=== PATIENT | female | born 1935 | race Caucasian/White ===

== ENCOUNTER 2018-05-20 17:57 | Inpatient (IN) | payer OTHER ==
[2018-05-20 19:28] LABS: ADD MAN DIFF? NO
[2018-05-20] MEDS ORDERED: NACL 0.9% 3 ML SYG IV (19:30)
[2018-05-20] MEDS ORDERED: ACETAMINOPHEN 325 MG TAB PO (19:30)
[2018-05-20 19:31] LABS: WHITE BLOOD COUNT 4.4 10^3/ul (4.8-10.8)
[2018-05-20 19:31] LABS: BASOPHILS % 0.9 % (0.0-2.0); EOSINOPHILS # 0.1 10^3/ul (0.0-0.5); EOSINOPHILS % 2.1 % (0.0-7.0); HEMATOCRIT 21.7 % (37.0-47.0); HEMOGLOBIN 7.2 g/dl (12.0-16.0); LYMPHOCYTES # 1.1 10^3/ul (0.8-2.9); LYMPHOCYTES % 26.1 % (15.0-51.0); MEAN CORPUSCULAR HEMOGLOBIN 31.7 pg (29.0-33.0); MEAN CORPUSCULAR HGB CONC 33.2 g/dl (32.0-37.0); MEAN CORPUSCULAR VOLUME 95.6 fl (82.0-101.0); MEAN PLATELET VOLUME 9.1 fl (7.4-10.4); MONOCYTE # 0.4 10^3/ul (0.3-0.9); MONOCYTES % 10.1 % (0.0-11.0); NEUTROPHIL # 2.6 10^3/ul (1.6-7.5); NEUTROPHILS % 60.3 % (39.0-77.0); PLATELET COUNT 426 10^3/UL (140-415); RED BLOOD COUNT 2.27 10^6/ul (4.20-5.40); RED CELL DISTRIBUTION WIDTH 15.4 % (11.5-14.5)
[2018-05-20 19:51] LABS: IRON 27 ug/dl (35-150)
[2018-05-20 19:53] LABS: MAGNESIUM 2.1 mg/dl (1.7-2.5)
[2018-05-20 19:54] LABS: ALBUMIN 3.4 g/dl (3.3-4.9); ANION GAP 15 (8-16); BLOOD UREA NITROGEN 22 mg/dl (7-20); CALCIUM 8.8 mg/dl (8.4-10.2); CARBON DIOXIDE 23 mmol/L (21-31); CHLORIDE 102 mmol/L (97-110); CREATININE 1.14 mg/dl (0.44-1.00); GLUCOSE 101 mg/dl (70-220); POTASSIUM 4.8 mmol/L (3.5-5.1); SODIUM 135 mmol/L (135-144)
[2018-05-20 20:00] LABS: % IRON SATURATION 8 % SAT (22-52); TOTAL IRON BINDING CAPACITY 326 ug/dl (241-421)
[2018-05-20] MEDS: SOD CHLORIDE 0.9% 1,000 ML IV (20:45)
[2018-05-20] MEDS: PANTOPRAZOLE 40 MG INJ IV (22:51)
[2018-05-21] MEDS: PANTOPRAZOLE 40 MG INJ IV ×2 (05:47→21:27)
[2018-05-21 05:51] LABS: ADD MAN DIFF? NO
[2018-05-21] MEDS: HYDROCODONE/APAP (5/325) TAB PO ×2 (05:54→17:40)
[2018-05-21 06:41] LABS: ANION GAP 14 (8-16); BLOOD UREA NITROGEN 21 mg/dl (7-20); CALCIUM 8.4 mg/dl (8.4-10.2); CARBON DIOXIDE 26 mmol/L (21-31); CHLORIDE 103 mmol/L (97-110); CREATININE 1.05 mg/dl (0.44-1.00); GLUCOSE 94 mg/dl (70-220); PHOSPHORUS 3.9 mg/dl (2.5-4.9); POTASSIUM 4.7 mmol/L (3.5-5.1); SODIUM 138 mmol/L (135-144)
[2018-05-21 07:03] LABS: ABNORMAL IP MESSAGE 1; BASOPHILS % 0.9 % (0.0-2.0); EOSINOPHILS # 0.1 10^3/ul (0.0-0.5); EOSINOPHILS % 3.1 % (0.0-7.0); HEMATOCRIT 18.5 % (37.0-47.0); LYMPHOCYTES # 1.1 10^3/ul (0.8-2.9); LYMPHOCYTES % 23.7 % (15.0-51.0); MEAN CORPUSCULAR HEMOGLOBIN 31.6 pg (29.0-33.0); MEAN CORPUSCULAR VOLUME 95.9 fl (82.0-101.0); MEAN PLATELET VOLUME 9.2 fl (7.4-10.4); MONOCYTE # 0.5 10^3/ul (0.3-0.9); MONOCYTES % 10.6 % (0.0-11.0); NEUTROPHIL # 2.7 10^3/ul (1.6-7.5); NEUTROPHILS % 60.8 % (39.0-77.0); PLATELET COUNT 353 10^3/UL (140-415); RED BLOOD COUNT 1.93 10^6/ul (4.20-5.40); RED CELL DISTRIBUTION WIDTH 15.5 % (11.5-14.5)
[2018-05-21 07:03] LABS: WHITE BLOOD COUNT 4.5 10^3/ul (4.8-10.8)
[2018-05-21 07:18] LABS: POSITIVE DIFF @See below
[2018-05-21 07:20] LABS: HEMOGLOBIN 6.1 g/dl (12.0-16.0); PATH REVIEW? YES
[2018-05-21] MEDS: FERROUS SULFATE (EC) 325 MG TAB PO (08:41)
[2018-05-21] MEDS: AMLODIPINE 5 MG TAB PO (08:42)
[2018-05-21] MEDS: SOD CHLORIDE 0.9% 1,000 ML IV ×2 (09:19→22:20)
[2018-05-21 10:07] LABS: HEMATOCRIT 19.9 % (37.0-47.0)
[2018-05-21 10:11] LABS: HEMOGLOBIN 6.4 g/dl (12.0-16.0)
[2018-05-21 11:35] LABS: IMMEDIATE SPIN CROSSMATCH 1 2
[2018-05-21 19:30] LABS: FOLATE 17.7 ng/ml (2.8-20.0)
[2018-05-22 04:56] LABS: ADD MAN DIFF? NO
[2018-05-22 05:03] LABS: WHITE BLOOD COUNT 3.3 10^3/ul (4.8-10.8)
[2018-05-22 05:03] LABS: BASOPHIL # 0.1 10^3/ul (0.0-0.1); BASOPHILS % 1.8 % (0.0-2.0); EOSINOPHILS # 0.2 10^3/ul (0.0-0.5); EOSINOPHILS % 5.5 % (0.0-7.0); HEMATOCRIT 25.5 % (37.0-47.0); HEMOGLOBIN 8.4 g/dl (12.0-16.0); LYMPHOCYTES # 1.2 10^3/ul (0.8-2.9); LYMPHOCYTES % 37.1 % (15.0-51.0); MEAN CORPUSCULAR HEMOGLOBIN 30.8 pg (29.0-33.0); MEAN CORPUSCULAR HGB CONC 32.9 g/dl (32.0-37.0); MEAN CORPUSCULAR VOLUME 93.4 fl (82.0-101.0); MEAN PLATELET VOLUME 9.2 fl (7.4-10.4); MONOCYTE # 0.5 10^3/ul (0.3-0.9); MONOCYTES % 13.8 % (0.0-11.0); NEUTROPHIL # 1.3 10^3/ul (1.6-7.5); NEUTROPHILS % 40.6 % (39.0-77.0); PLATELET COUNT 312 10^3/UL (140-415); RED BLOOD COUNT 2.73 10^6/ul (4.20-5.40); RED CELL DISTRIBUTION WIDTH 15.2 % (11.5-14.5)
[2018-05-22 05:13] LABS: ANION GAP 15 (8-16); BLOOD UREA NITROGEN 15 mg/dl (7-20); CALCIUM 8.5 mg/dl (8.4-10.2); CARBON DIOXIDE 24 mmol/L (21-31); CHLORIDE 104 mmol/L (97-110); CREATININE 1.07 mg/dl (0.44-1.00); GLUCOSE 93 mg/dl (70-220); POTASSIUM 4.5 mmol/L (3.5-5.1); SODIUM 138 mmol/L (135-144)
[2018-05-22] MEDS: SOD CHLORIDE 0.9% 1,000 ML IV (06:32)
[2018-05-22] MEDS: PANTOPRAZOLE 40 MG INJ IV ×2 (09:01→21:30)
[2018-05-22] MEDS: FERROUS SULFATE (EC) 325 MG TAB PO (09:01)
[2018-05-22] MEDS: AMLODIPINE 5 MG TAB PO (09:01)
[2018-05-22] MEDS: SOD FERRIC GLUC COMPLX 125 MG in SOD CHLORIDE 0.9% 100 ML IVPB ×2 (12:20→16:43)
[2018-05-22] MEDS: HYDROCODONE/APAP (5/325) TAB PO (12:21)
[2018-05-23] MEDS: HYDROCODONE/APAP (5/325) TAB PO ×3 (01:02→21:35)
[2018-05-23] MEDS: SOD CHLORIDE 0.9% 1,000 ML IV ×3 (01:03→23:51)
[2018-05-23 04:59] LABS: ADD MAN DIFF? NO
[2018-05-23 05:06] LABS: BASOPHIL # 0.1 10^3/ul (0.0-0.1); BASOPHILS % 1.4 % (0.0-2.0); EOSINOPHILS # 0.2 10^3/ul (0.0-0.5); EOSINOPHILS % 4.3 % (0.0-7.0); HEMATOCRIT 24.9 % (37.0-47.0); HEMOGLOBIN 8.4 g/dl (12.0-16.0); LYMPHOCYTES # 1.4 10^3/ul (0.8-2.9); LYMPHOCYTES % 32.8 % (15.0-51.0); MEAN CORPUSCULAR HEMOGLOBIN 31.3 pg (29.0-33.0); MEAN CORPUSCULAR HGB CONC 33.7 g/dl (32.0-37.0); MEAN CORPUSCULAR VOLUME 92.9 fl (82.0-101.0); MEAN PLATELET VOLUME 9.2 fl (7.4-10.4); MONOCYTE # 0.5 10^3/ul (0.3-0.9); MONOCYTES % 12.6 % (0.0-11.0); NEUTROPHILS % 47.9 % (39.0-77.0); PLATELET COUNT 309 10^3/UL (140-415); RED BLOOD COUNT 2.68 10^6/ul (4.20-5.40); RED CELL DISTRIBUTION WIDTH 15.2 % (11.5-14.5)
[2018-05-23 05:06] LABS: WHITE BLOOD COUNT 4.2 10^3/ul (4.8-10.8)
[2018-05-23 05:16] LABS: INR 1.19; PROTIME 15.3 Sec (11.9-14.9); PT RATIO 1.2
[2018-05-23 05:31] LABS: ALANINE AMINOTRANSFERASE 25 IU/L (13-69); ALBUMIN 2.7 g/dl (3.3-4.9); ALKALINE PHOSPHATASE 66 IU/L (42-121); ANION GAP 13 (8-16); ASPARTATE AMINO TRANSFERASE 15 IU/L (15-46); BILIRUBIN,INDIRECT 0.3 mg/dl (0-1.1); BILIRUBIN,TOTAL 0.3 mg/dl (0.2-1.3); BLOOD UREA NITROGEN 13 mg/dl (7-20); CALCIUM 8.2 mg/dl (8.4-10.2); CARBON DIOXIDE 22 mmol/L (21-31); CHLORIDE 109 mmol/L (97-110); CREATININE 0.97 mg/dl (0.44-1.00); GLUCOSE 83 mg/dl (70-220); POTASSIUM 4.2 mmol/L (3.5-5.1); SODIUM 140 mmol/L (135-144); TOTAL PROTEIN 5.7 g/dl (6.1-8.1)
[2018-05-23] MEDS: PANTOPRAZOLE 40 MG INJ IV ×2 (08:10→21:35)
[2018-05-23] MEDS: AMLODIPINE 5 MG TAB PO (08:10)
[2018-05-23] MEDS: FERROUS SULFATE (EC) 325 MG TAB PO (08:10)
[2018-05-23] MEDS ORDERED: VITAMIN A & D 5 GM OINT PACKET TOP (10:43)
[2018-05-23] MEDS: BISACODYL (EC) 5 MG TAB PO ×2 (15:05→21:35)
[2018-05-23] MEDS: SOD FERRIC GLUC COMPLX 125 MG in SOD CHLORIDE 0.9% 100 ML IVPB (16:18)
[2018-05-23] MEDS: POLYETHYLENE GLYCOL 3350 119 GM POWDER PO ×2 (16:18→21:35)
[2018-05-23] MEDS: ONDANSETRON 4 MG INJ IV (18:36)
[2018-05-23] MEDS: MAGNESIUM CITRATE 300 ML BTL PO (21:35)
[2018-05-24 05:37] LABS: ADD MAN DIFF? NO
[2018-05-24 05:43] LABS: BASOPHIL # 0.1 10^3/ul (0.0-0.1); EOSINOPHILS # 0.1 10^3/ul (0.0-0.5); EOSINOPHILS % 1.7 % (0.0-7.0); HEMATOCRIT 30.8 % (37.0-47.0); HEMOGLOBIN 10.2 g/dl (12.0-16.0); LYMPHOCYTES # 1.3 10^3/ul (0.8-2.9); LYMPHOCYTES % 23.1 % (15.0-51.0); MEAN CORPUSCULAR HEMOGLOBIN 31.4 pg (29.0-33.0); MEAN CORPUSCULAR HGB CONC 33.1 g/dl (32.0-37.0); MEAN CORPUSCULAR VOLUME 94.8 fl (82.0-101.0); MEAN PLATELET VOLUME 9.2 fl (7.4-10.4); MONOCYTE # 0.7 10^3/ul (0.3-0.9); MONOCYTES % 11.5 % (0.0-11.0); NEUTROPHIL # 3.5 10^3/ul (1.6-7.5); NEUTROPHILS % 61.7 % (39.0-77.0); PLATELET COUNT 347 10^3/UL (140-415); RED BLOOD COUNT 3.25 10^6/ul (4.20-5.40); RED CELL DISTRIBUTION WIDTH 15.3 % (11.5-14.5)
[2018-05-24 05:43] LABS: WHITE BLOOD COUNT 5.8 10^3/ul (4.8-10.8)
[2018-05-24] MEDS: FERROUS SULFATE (EC) 325 MG TAB PO (09:45)
[2018-05-24] MEDS: AMLODIPINE 5 MG TAB PO (09:46)
[2018-05-24] MEDS: PANTOPRAZOLE 40 MG INJ IV ×2 (09:46→20:58)
[2018-05-24] MEDS: HYDROCODONE/APAP (5/325) TAB PO ×2 (12:24→20:58)
[2018-05-24] MEDS ORDERED: FENTAnyl 50 MCG/ML VIAL (15:27)
[2018-05-24] MEDS ORDERED: PROPOFOL 20 ML (15:27)
[2018-05-24] MEDS: SOD FERRIC GLUC COMPLX 125 MG in SOD CHLORIDE 0.9% 100 ML IVPB (17:49)
[2018-05-25 05:38] LABS: ADD MAN DIFF? NO
[2018-05-25 05:44] LABS: WHITE BLOOD COUNT 4.4 10^3/ul (4.8-10.8)
[2018-05-25 05:44] LABS: BASOPHIL # 0.1 10^3/ul (0.0-0.1); BASOPHILS % 1.1 % (0.0-2.0); EOSINOPHILS # 0.2 10^3/ul (0.0-0.5); EOSINOPHILS % 3.6 % (0.0-7.0); HEMATOCRIT 25.3 % (37.0-47.0); HEMOGLOBIN 8.3 g/dl (12.0-16.0); LYMPHOCYTES # 1.2 10^3/ul (0.8-2.9); LYMPHOCYTES % 27.4 % (15.0-51.0); MEAN CORPUSCULAR HEMOGLOBIN 31.3 pg (29.0-33.0); MEAN CORPUSCULAR HGB CONC 32.8 g/dl (32.0-37.0); MEAN CORPUSCULAR VOLUME 95.5 fl (82.0-101.0); MEAN PLATELET VOLUME 9.3 fl (7.4-10.4); MONOCYTE # 0.7 10^3/ul (0.3-0.9); MONOCYTES % 14.7 % (0.0-11.0); NEUTROPHIL # 2.3 10^3/ul (1.6-7.5); NEUTROPHILS % 52.1 % (39.0-77.0); PLATELET COUNT 280 10^3/UL (140-415); RED BLOOD COUNT 2.65 10^6/ul (4.20-5.40); RED CELL DISTRIBUTION WIDTH 15.4 % (11.5-14.5)
[2018-05-25 05:59] LABS: HEMOGLOBIN A1C 5.6 % (0-5.9)
[2018-05-25 06:03] LABS: ALANINE AMINOTRANSFERASE 24 IU/L (13-69); ALBUMIN 2.6 g/dl (3.3-4.9); ALBUMIN/GLOBULIN RATIO 0.96; ALKALINE PHOSPHATASE 59 IU/L (42-121); ANION GAP 12 (8-16); ASPARTATE AMINO TRANSFERASE 15 IU/L (15-46); BILIRUBIN,INDIRECT 0.3 mg/dl (0-1.1); BILIRUBIN,TOTAL 0.3 mg/dl (0.2-1.3); BLOOD UREA NITROGEN 9 mg/dl (7-20); CALCIUM 8.3 mg/dl (8.4-10.2); CARBON DIOXIDE 26 mmol/L (21-31); CHLORIDE 104 mmol/L (97-110); GLUCOSE 85 mg/dl (70-220); MAGNESIUM 2.3 mg/dl (1.7-2.5); PHOSPHORUS 3.3 mg/dl (2.5-4.9); POTASSIUM 3.9 mmol/L (3.5-5.1); SODIUM 138 mmol/L (135-144); TOTAL PROTEIN 5.3 g/dl (6.1-8.1)
[2018-05-25] MEDS: AMLODIPINE 5 MG TAB PO (09:22)
[2018-05-25] MEDS: PANTOPRAZOLE 40 MG INJ IV (09:22)
[2018-05-25] MEDS: HYDROCODONE/APAP (5/325) TAB PO (09:22)
[2018-05-25] MEDS: FERROUS SULFATE (EC) 325 MG TAB PO (09:22)
== END 2018-05-25 19:07 | disposition home or self-care (01) | DRG 812 ==
LOC: PP2 17:57
PROC: 30233N1 Transfusion of Nonautologous Red Blood Cells into Peripheral Vein, Percutaneous Approach (ICD-10-PCS; principal; 2018-05-24 13:30)
PROC: 0DBF8ZX Excision of Right Large Intestine, Via Natural or Artificial Opening Endoscopic, Diagnostic (ICD-10-PCS; 2018-05-24 13:30)
PROC: 0DB98ZX Excision of Duodenum, Via Natural or Artificial Opening Endoscopic, Diagnostic (ICD-10-PCS; 2018-05-24 13:30)
PROC: 0DB78ZX Excision of Stomach, Pylorus, Via Natural or Artificial Opening Endoscopic, Diagnostic (ICD-10-PCS; 2018-05-24 13:30)
DX: D50.0 Iron deficiency anemia secondary to blood loss (chronic) (principal); K63.3 Ulcer of intestine; K52.1 Toxic gastroenteritis and colitis; I12.9 Hypertensive chronic kidney disease with stage 1 through stage 4 chronic kidney disease, or unspecified chronic kidney disease; N18.2 Chronic kidney disease, stage 2 (mild); G89.4 Chronic pain syndrome; M19.91 Primary osteoarthritis, unspecified site; K63.89 Other specified diseases of intestine; K29.50 Unspecified chronic gastritis without bleeding; T50.905A Adverse effect of unspecified drugs, medicaments and biological substances, initial encounter; Z87.11 Personal history of peptic ulcer disease
CPT/HCPCS: 36430; 80048; 80053; 80069; 82607; 82746; 83036; 83540; 83735; 84100; 84443; 85014; 85018; 85025; 85610; 85730; 86850; 86900; 86901; 86920; 88305; 88312

== ENCOUNTER 2018-06-24 14:33 | Inpatient (IN) | payer OTHER ==
[2018-06-24] MEDS: DOCUSATE SODIUM 100 MG CAP PO
[2018-06-24] MEDS: TRIAMCINOLONE ACET 0.1% 15 GM OINT TOP
[2018-06-24 16:45] LABS: ADD MAN DIFF? NO
[2018-06-24] MEDS: SOD CHLORIDE 0.9% 500 ML IV (16:45)
[2018-06-24 16:54] LABS: WHITE BLOOD COUNT 8.9 10^3/ul (4.8-10.8)
[2018-06-24 16:54] LABS: BASOPHIL # 0.1 10^3/ul (0.0-0.1); BASOPHILS % 0.6 % (0.0-2.0); EOSINOPHILS # 0.1 10^3/ul (0.0-0.5); EOSINOPHILS % 1.5 % (0.0-7.0); HEMATOCRIT 23.3 % (37.0-47.0); HEMOGLOBIN 7.6 g/dl (12.0-16.0); LYMPHOCYTES # 1.3 10^3/ul (0.8-2.9); LYMPHOCYTES % 14.5 % (15.0-51.0); MEAN CORPUSCULAR HEMOGLOBIN 31.1 pg (29.0-33.0); MEAN CORPUSCULAR HGB CONC 32.6 g/dl (32.0-37.0); MEAN CORPUSCULAR VOLUME 95.5 fl (82.0-101.0); MEAN PLATELET VOLUME 9.2 fl (7.4-10.4); MONOCYTE # 0.7 10^3/ul (0.3-0.9); MONOCYTES % 7.5 % (0.0-11.0); NEUTROPHIL # 6.6 10^3/ul (1.6-7.5); NEUTROPHILS % 74.4 % (39.0-77.0); PLATELET COUNT 276 10^3/UL (140-415); RED BLOOD COUNT 2.44 10^6/ul (4.20-5.40); RED CELL DISTRIBUTION WIDTH 16.5 % (11.5-14.5)
[2018-06-24 17:12] LABS: INR 0.98; PROTIME 13.1 Sec (11.9-14.9)
[2018-06-24 17:13] LABS: PARTIAL THROMBOPLASTIN TIME 30.6 Sec (25.0-35.0)
[2018-06-24 17:14] LABS: ALANINE AMINOTRANSFERASE 13 IU/L (13-69); ALBUMIN 3.4 g/dl (3.3-4.9); ALKALINE PHOSPHATASE 81 IU/L (42-121); ANION GAP 12 (8-16); ASPARTATE AMINO TRANSFERASE 16 IU/L (15-46); BILIRUBIN,INDIRECT 0.1 mg/dl (0-1.1); BILIRUBIN,TOTAL 0.1 mg/dl (0.2-1.3); BLOOD UREA NITROGEN 27 mg/dl (7-20); CALCIUM 8.8 mg/dl (8.4-10.2); CARBON DIOXIDE 25 mmol/L (21-31); CHLORIDE 98 mmol/L (97-110); GLUCOSE 106 mg/dl (70-220); LIPASE 35 U/L (23-300); POTASSIUM 4.8 mmol/L (3.5-5.1); SODIUM 130 mmol/L (135-144); TOTAL PROTEIN 6.8 g/dl (6.1-8.1)
[2018-06-24 17:26] LABS: TROPONIN-I < 0.010 ng/ml (0.000-0.120)
[2018-06-24 18:06] LABS: IMMEDIATE SPIN CROSSMATCH 1 1
[2018-06-24] MEDS ORDERED: LORAZEPAM 2 MG INJ IV (19:00)
[2018-06-24] MEDS ORDERED: NITROGLYCERIN (SL) 0.4 MG TAB SL (19:00)
[2018-06-24] MEDS ORDERED: DOCUSATE SODIUM 100 MG CAP PO (19:00)
[2018-06-24] MEDS ORDERED: ACETAMINOPHEN 325 MG TAB PO (19:00)
[2018-06-24] MEDS ORDERED: ALBUTEROL/IPRATROPIUM (NEB) 3 ML AMP HHN (19:00)
[2018-06-24] MEDS ORDERED: NA PHOSPHATE/BIPHOS 133 ML ENEMA PR (19:00)
[2018-06-24] MEDS ORDERED: NACL 0.9% 3 ML SYG IV (19:00)
[2018-06-24] MEDS ORDERED: ONDANSETRON 4 MG INJ IV (19:00)
[2018-06-24] MEDS ORDERED: MAGNESIUM HYDROXIDE 30ML CUP PO (19:00)
[2018-06-24] MEDS ORDERED: morphine 2 MG INJ IV (19:00)
[2018-06-24] MEDS ORDERED: hydrALAzine 20 MG INJ IV (19:00)
[2018-06-24 20:21] LABS: FREE T4 (FREE THYROXINE) 1.33 ng/dl (0.85-1.93)
[2018-06-24] MEDS: SOD CHLORIDE 0.45% 1,000 ML IV (21:30)
[2018-06-24 22:53] LABS: INR 1.01; PROTIME 13.4 Sec (11.9-14.9)
[2018-06-24 22:54] LABS: PARTIAL THROMBOPLASTIN TIME 31.5 Sec (25.0-35.0)
[2018-06-25] MEDS: PANTOPRAZOLE 40 MG INJ IV (05:24)
[2018-06-25] MEDS: HYDROCODONE/APAP (5/325) TAB PO (05:38)
[2018-06-25 07:34] LABS: ADD MAN DIFF? NO
[2018-06-25 07:42] LABS: BASOPHIL # 0.1 10^3/ul (0.0-0.1); BASOPHILS % 0.9 % (0.0-2.0); EOSINOPHILS # 0.2 10^3/ul (0.0-0.5); EOSINOPHILS % 3.4 % (0.0-7.0); HEMATOCRIT 24.8 % (37.0-47.0); HEMOGLOBIN 8.2 g/dl (12.0-16.0); LYMPHOCYTES # 1.1 10^3/ul (0.8-2.9); MEAN CORPUSCULAR HEMOGLOBIN 30.7 pg (29.0-33.0); MEAN CORPUSCULAR HGB CONC 33.1 g/dl (32.0-37.0); MEAN CORPUSCULAR VOLUME 92.9 fl (82.0-101.0); MONOCYTE # 0.6 10^3/ul (0.3-0.9); MONOCYTES % 9.9 % (0.0-11.0); NEUTROPHIL # 3.9 10^3/ul (1.6-7.5); NEUTROPHILS % 66.6 % (39.0-77.0); PLATELET COUNT 265 10^3/UL (140-415); RED BLOOD COUNT 2.67 10^6/ul (4.20-5.40); RED CELL DISTRIBUTION WIDTH 16.5 % (11.5-14.5)
[2018-06-25 07:42] LABS: WHITE BLOOD COUNT 5.8 10^3/ul (4.8-10.8)
[2018-06-25 07:49] LABS: HEMOGLOBIN A1C 5.8 % (0-5.9)
[2018-06-25] MEDS: SOD CHLORIDE 0.45% 1,000 ML IV (07:51)
[2018-06-25 08:06] LABS: CHOLESTEROL 121 mg/dl (100-200)
[2018-06-25 08:06] LABS: CHOL/HDL RATIO 3.3 RATIO; HDL CHOLESTEROL 36 mg/dl (33-92); LDL CHOLESTEROL,CALCULATED 68 mg/dl; TRIGLYCERIDES 87 mg/dl (0-149)
[2018-06-25 08:07] LABS: ANION GAP 9 (8-16); BLOOD UREA NITROGEN 20 mg/dl (7-20); CALCIUM 8.6 mg/dl (8.4-10.2); CARBON DIOXIDE 25 mmol/L (21-31); CHLORIDE 106 mmol/L (97-110); CREATININE 0.87 mg/dl (0.44-1.00); GLUCOSE 89 mg/dl (70-220); MAGNESIUM 1.9 mg/dl (1.7-2.5); PHOSPHORUS 3.8 mg/dl (2.5-4.9); POTASSIUM 4.4 mmol/L (3.5-5.1); SODIUM 136 mmol/L (135-144)
[2018-06-25] MEDS: FERROUS SULFATE (EC) 325 MG TAB PO (08:19)
[2018-06-25] MEDS: CHOLECALCIFEROL 1,000 UNIT TAB PO (08:19)
[2018-06-25] MEDS: GABAPENTIN 100 MG CAP PO (08:19)
[2018-06-25] MEDS: DOCUSATE SODIUM 100 MG CAP PO ×2 (08:19→20:39)
[2018-06-25] MEDS: LOSARTAN 50 MG TAB PO (08:20)
[2018-06-25] MEDS: TRIAMCINOLONE ACET 0.1% 15 GM OINT TOP ×2 (09:00→20:39)
[2018-06-25] MEDS: FUROSEMIDE 20 MG INJ IV (11:26)
[2018-06-25 11:31] LABS: B-TYPE NATRIURETIC PEPTIDE 1170 PG/ML (0-450)
[2018-06-26] MEDS: HYDROCODONE/APAP (5/325) TAB PO ×3 (01:41→23:56)
[2018-06-26] MEDS: PANTOPRAZOLE 40 MG INJ IV (06:05)
[2018-06-26 06:53] LABS: ADD MAN DIFF? NO
[2018-06-26 06:57] LABS: BASOPHIL # 0.1 10^3/ul (0.0-0.1); BASOPHILS % 1.2 % (0.0-2.0); EOSINOPHILS # 0.2 10^3/ul (0.0-0.5); EOSINOPHILS % 3.7 % (0.0-7.0); HEMOGLOBIN 8.7 g/dl (12.0-16.0); LYMPHOCYTES # 1.5 10^3/ul (0.8-2.9); LYMPHOCYTES % 25.4 % (15.0-51.0); MEAN CORPUSCULAR HEMOGLOBIN 31.9 pg (29.0-33.0); MEAN CORPUSCULAR HGB CONC 33.5 g/dl (32.0-37.0); MEAN CORPUSCULAR VOLUME 95.2 fl (82.0-101.0); MEAN PLATELET VOLUME 9.5 fl (7.4-10.4); MONOCYTE # 0.6 10^3/ul (0.3-0.9); MONOCYTES % 9.7 % (0.0-11.0); NEUTROPHIL # 3.5 10^3/ul (1.6-7.5); PLATELET COUNT 272 10^3/UL (140-415); RED BLOOD COUNT 2.73 10^6/ul (4.20-5.40); RED CELL DISTRIBUTION WIDTH 16.5 % (11.5-14.5)
[2018-06-26 06:57] LABS: WHITE BLOOD COUNT 5.9 10^3/ul (4.8-10.8)
[2018-06-26 07:26] LABS: ANION GAP 9 (8-16); BLOOD UREA NITROGEN 17 mg/dl (7-20); CALCIUM 8.9 mg/dl (8.4-10.2); CARBON DIOXIDE 26 mmol/L (21-31); CHLORIDE 104 mmol/L (97-110); CREATININE 0.94 mg/dl (0.44-1.00); GLUCOSE 85 mg/dl (70-220); SODIUM 135 mmol/L (135-144)
[2018-06-26] MEDS: LOSARTAN 50 MG TAB PO (08:06)
[2018-06-26] MEDS: DOCUSATE SODIUM 100 MG CAP PO ×2 (08:06→20:23)
[2018-06-26] MEDS: CHOLECALCIFEROL 1,000 UNIT TAB PO (08:06)
[2018-06-26] MEDS: GABAPENTIN 100 MG CAP PO (08:07)
[2018-06-26] MEDS: FERROUS SULFATE (EC) 325 MG TAB PO (08:07)
[2018-06-26] MEDS: TRIAMCINOLONE ACET 0.1% 15 GM OINT TOP ×2 (08:12→20:27)
[2018-06-26 11:44] LABS: OCCULT BLOOD STOOL POSITIVE (NEGATIVE)
[2018-06-27] MEDS: PANTOPRAZOLE 40 MG INJ IV (05:31)
[2018-06-27] MEDS: morphine LIQ (10 MG/5 ML) CUP PO (05:33)
[2018-06-27 06:38] LABS: ADD MAN DIFF? NO
[2018-06-27 06:48] LABS: WHITE BLOOD COUNT 5.5 10^3/ul (4.8-10.8)
[2018-06-27 06:48] LABS: BASOPHIL # 0.1 10^3/ul (0.0-0.1); BASOPHILS % 0.9 % (0.0-2.0); EOSINOPHILS # 0.2 10^3/ul (0.0-0.5); EOSINOPHILS % 3.8 % (0.0-7.0); HEMATOCRIT 26.3 % (37.0-47.0); HEMOGLOBIN 8.7 g/dl (12.0-16.0); LYMPHOCYTES # 1.5 10^3/ul (0.8-2.9); LYMPHOCYTES % 27.7 % (15.0-51.0); MEAN CORPUSCULAR HEMOGLOBIN 30.9 pg (29.0-33.0); MEAN CORPUSCULAR HGB CONC 33.1 g/dl (32.0-37.0); MEAN CORPUSCULAR VOLUME 93.3 fl (82.0-101.0); MEAN PLATELET VOLUME 9.6 fl (7.4-10.4); MONOCYTE # 0.6 10^3/ul (0.3-0.9); MONOCYTES % 10.3 % (0.0-11.0); NEUTROPHIL # 3.1 10^3/ul (1.6-7.5); NEUTROPHILS % 56.4 % (39.0-77.0); PLATELET COUNT 287 10^3/UL (140-415); RED BLOOD COUNT 2.82 10^6/ul (4.20-5.40); RED CELL DISTRIBUTION WIDTH 16.3 % (11.5-14.5)
[2018-06-27 07:29] LABS: ANION GAP 9 (8-16); BLOOD UREA NITROGEN 14 mg/dl (7-20); CALCIUM 8.7 mg/dl (8.4-10.2); CARBON DIOXIDE 26 mmol/L (21-31); CHLORIDE 104 mmol/L (97-110); CREATININE 0.86 mg/dl (0.44-1.00); GLUCOSE 97 mg/dl (70-220); POTASSIUM 3.7 mmol/L (3.5-5.1); SODIUM 135 mmol/L (135-144)
[2018-06-27 08:01] LABS: C-REACTIVE PROTEIN 1.3 mg/dl (0.0-0.9)
[2018-06-27] MEDS: CHOLECALCIFEROL 1,000 UNIT TAB PO (08:49)
[2018-06-27] MEDS: DOCUSATE SODIUM 100 MG CAP PO ×2 (08:49→20:07)
[2018-06-27] MEDS: GABAPENTIN 100 MG CAP PO (08:50)
[2018-06-27] MEDS: FERROUS SULFATE (EC) 325 MG TAB PO (08:50)
[2018-06-27] MEDS: LOSARTAN 50 MG TAB PO (08:50)
[2018-06-27] MEDS: TRIAMCINOLONE ACET 0.1% 15 GM OINT TOP ×2 (08:51→20:09)
[2018-06-27] MEDS: BISACODYL (EC) 5 MG TAB PO (16:03)
[2018-06-27] MEDS: MAGNESIUM CITRATE 300 ML BTL PO (17:46)
[2018-06-27] MEDS: POLYETHYLENE GLYCOL 3350 119 GM POWDER PO (18:50)
[2018-06-27] MEDS: HYDROCODONE/APAP (5/325) TAB PO (20:07)
[2018-06-28] MEDS: POLYETHYLENE GLYCOL 3350 119 GM POWDER PO (05:27)
[2018-06-28] MEDS: PANTOPRAZOLE 40 MG INJ IV (05:27)
[2018-06-28 05:57] LABS: WHITE BLOOD COUNT 5.3 10^3/ul (4.8-10.8)
[2018-06-28 05:57] LABS: ADD MAN DIFF? NO; BASOPHIL # 0.1 10^3/ul (0.0-0.1); BASOPHILS % 1.1 % (0.0-2.0); EOSINOPHILS # 0.2 10^3/ul (0.0-0.5); HEMATOCRIT 28.2 % (37.0-47.0); HEMOGLOBIN 9.2 g/dl (12.0-16.0); LYMPHOCYTES # 1.5 10^3/ul (0.8-2.9); LYMPHOCYTES % 29.3 % (15.0-51.0); MEAN CORPUSCULAR HEMOGLOBIN 31.1 pg (29.0-33.0); MEAN CORPUSCULAR HGB CONC 32.6 g/dl (32.0-37.0); MEAN CORPUSCULAR VOLUME 95.3 fl (82.0-101.0); MEAN PLATELET VOLUME 9.6 fl (7.4-10.4); MONOCYTE # 0.7 10^3/ul (0.3-0.9); MONOCYTES % 12.4 % (0.0-11.0); NEUTROPHIL # 2.7 10^3/ul (1.6-7.5); NEUTROPHILS % 51.9 % (39.0-77.0); PLATELET COUNT 292 10^3/UL (140-415); RED BLOOD COUNT 2.96 10^6/ul (4.20-5.40); RED CELL DISTRIBUTION WIDTH 16.6 % (11.5-14.5)
[2018-06-28 06:24] LABS: ANION GAP 10 (8-16); BLOOD UREA NITROGEN 13 mg/dl (7-20); CALCIUM 8.6 mg/dl (8.4-10.2); CARBON DIOXIDE 25 mmol/L (21-31); CHLORIDE 106 mmol/L (97-110); CREATININE 0.84 mg/dl (0.44-1.00); GLUCOSE 102 mg/dl (70-220); POTASSIUM 3.6 mmol/L (3.5-5.1); SODIUM 137 mmol/L (135-144)
[2018-06-28] MEDS: BISACODYL (EC) 5 MG TAB PO (08:02)
[2018-06-28] MEDS: LOSARTAN 50 MG TAB PO (09:00)
[2018-06-28] MEDS: DOCUSATE SODIUM 100 MG CAP PO ×2 (09:00→22:58)
[2018-06-28] MEDS: FERROUS SULFATE (EC) 325 MG TAB PO (09:00)
[2018-06-28] MEDS: CHOLECALCIFEROL 1,000 UNIT TAB PO (09:00)
[2018-06-28] MEDS: GABAPENTIN 100 MG CAP PO (09:00)
[2018-06-28] MEDS: TRIAMCINOLONE ACET 0.1% 15 GM OINT TOP ×2 (09:59→22:58)
[2018-06-28] MEDS ORDERED: hydrALAzine 20 MG INJ IV (15:00)
[2018-06-28] MEDS ORDERED: MEPERIDINE 25 MG INJ IV (15:00)
[2018-06-28] MEDS ORDERED: DIPHENHYDRAMINE 50 MG INJ IV (15:00)
[2018-06-28] MEDS ORDERED: LABETALOL HCL 20MG INJ IV (15:00)
[2018-06-28] MEDS ORDERED: METOCLOPRAMIDE 10 MG INJ IV (15:00)
[2018-06-28] MEDS ORDERED: EPHEDrine SULFATE 50 MG/5 ML SYG IV (15:00)
[2018-06-28] MEDS ORDERED: FENTAnyl 50 MCG/ML VIAL IV ×3 (15:00)
[2018-06-28] MEDS ORDERED: ONDANSETRON 4 MG INJ IV (15:00)
[2018-06-28] MEDS ORDERED: MIDAZOLAM 1 MG/ML 2 ML INJ IV (15:00)
[2018-06-28] MEDS: HYDROCODONE/APAP (5/325) TAB PO (15:40)
[2018-06-29] MEDS: HYDROCODONE/APAP (5/325) TAB PO ×2 (02:07→21:49)
[2018-06-29 07:47] LABS: ADD MAN DIFF? NO
[2018-06-29 07:50] LABS: BASOPHIL # 0.1 10^3/ul (0.0-0.1); EOSINOPHILS # 0.2 10^3/ul (0.0-0.5); EOSINOPHILS % 3.6 % (0.0-7.0); HEMATOCRIT 29.8 % (37.0-47.0); HEMOGLOBIN 9.6 g/dl (12.0-16.0); LYMPHOCYTES # 1.6 10^3/ul (0.8-2.9); LYMPHOCYTES % 33.2 % (15.0-51.0); MEAN CORPUSCULAR HEMOGLOBIN 30.3 pg (29.0-33.0); MEAN CORPUSCULAR HGB CONC 32.2 g/dl (32.0-37.0); MEAN PLATELET VOLUME 9.5 fl (7.4-10.4); MONOCYTE # 0.4 10^3/ul (0.3-0.9); MONOCYTES % 8.5 % (0.0-11.0); NEUTROPHIL # 2.6 10^3/ul (1.6-7.5); NEUTROPHILS % 52.5 % (39.0-77.0); PLATELET COUNT 327 10^3/UL (140-415); RED BLOOD COUNT 3.17 10^6/ul (4.20-5.40); RED CELL DISTRIBUTION WIDTH 16.3 % (11.5-14.5)
[2018-06-29 07:50] LABS: WHITE BLOOD COUNT 4.9 10^3/ul (4.8-10.8)
[2018-06-29] MEDS: DOCUSATE SODIUM 100 MG CAP PO ×2 (08:26→21:48)
[2018-06-29] MEDS: CHOLECALCIFEROL 1,000 UNIT TAB PO (08:28)
[2018-06-29] MEDS: GABAPENTIN 100 MG CAP PO (08:28)
[2018-06-29] MEDS: LOSARTAN 50 MG TAB PO (08:28)
[2018-06-29] MEDS: FERROUS SULFATE (EC) 325 MG TAB PO (08:28)
[2018-06-29] MEDS: TRIAMCINOLONE ACET 0.1% 15 GM OINT TOP ×2 (08:29→21:49)
[2018-06-29 09:29] LABS: ANION GAP 11 (8-16); BLOOD UREA NITROGEN 11 mg/dl (7-20); CALCIUM 8.7 mg/dl (8.4-10.2); CARBON DIOXIDE 24 mmol/L (21-31); CHLORIDE 102 mmol/L (97-110); GLUCOSE 93 mg/dl (70-220); POTASSIUM 3.9 mmol/L (3.5-5.1); SODIUM 133 mmol/L (135-144)
[2018-06-30 05:47] LABS: ADD MAN DIFF? NO
[2018-06-30 06:06] LABS: WHITE BLOOD COUNT 4.8 10^3/ul (4.8-10.8)
[2018-06-30 06:06] LABS: BASOPHIL # 0.1 10^3/ul (0.0-0.1); BASOPHILS % 1.5 % (0.0-2.0); EOSINOPHILS # 0.2 10^3/ul (0.0-0.5); EOSINOPHILS % 3.5 % (0.0-7.0); HEMATOCRIT 25.9 % (37.0-47.0); HEMOGLOBIN 8.6 g/dl (12.0-16.0); LYMPHOCYTES # 1.9 10^3/ul (0.8-2.9); MEAN CORPUSCULAR HEMOGLOBIN 31.5 pg (29.0-33.0); MEAN CORPUSCULAR HGB CONC 33.2 g/dl (32.0-37.0); MEAN CORPUSCULAR VOLUME 94.9 fl (82.0-101.0); MEAN PLATELET VOLUME 9.5 fl (7.4-10.4); MONOCYTE # 0.5 10^3/ul (0.3-0.9); NEUTROPHIL # 2.1 10^3/ul (1.6-7.5); PLATELET COUNT 279 10^3/UL (140-415); RED BLOOD COUNT 2.73 10^6/ul (4.20-5.40); RED CELL DISTRIBUTION WIDTH 16.3 % (11.5-14.5)
[2018-06-30 06:32] LABS: ANION GAP 10 (8-16); BLOOD UREA NITROGEN 12 mg/dl (7-20); CALCIUM 8.4 mg/dl (8.4-10.2); CARBON DIOXIDE 26 mmol/L (21-31); CHLORIDE 102 mmol/L (97-110); CREATININE 0.88 mg/dl (0.44-1.00); GLUCOSE 97 mg/dl (70-220); POTASSIUM 3.9 mmol/L (3.5-5.1); SODIUM 134 mmol/L (135-144)
[2018-06-30] MEDS: DOCUSATE SODIUM 100 MG CAP PO ×2 (07:57→20:10)
[2018-06-30] MEDS: FERROUS SULFATE (EC) 325 MG TAB PO (07:57)
[2018-06-30] MEDS: GABAPENTIN 100 MG CAP PO (07:57)
[2018-06-30] MEDS: CHOLECALCIFEROL 1,000 UNIT TAB PO (07:58)
[2018-06-30] MEDS: TRIAMCINOLONE ACET 0.1% 15 GM OINT TOP ×2 (07:59→20:11)
[2018-06-30] MEDS: LOSARTAN 50 MG TAB PO (07:59)
[2018-06-30] MEDS: IOHEXOL 100 ML (10:35)
[2018-06-30] MEDS: SOD CHLORIDE 0.9% 100 ML (10:35)
[2018-06-30] MEDS: HYDROCODONE/APAP (5/325) TAB PO (21:33)
[2018-07-01] MEDS: PROPOFOL 20 ML (08:27)
[2018-07-01] MEDS: CHOLECALCIFEROL 1,000 UNIT TAB PO (08:28)
[2018-07-01] MEDS: FERROUS SULFATE (EC) 325 MG TAB PO (08:28)
[2018-07-01] MEDS: GABAPENTIN 100 MG CAP PO (08:28)
[2018-07-01] MEDS: DOCUSATE SODIUM 100 MG CAP PO (08:28)
[2018-07-01] MEDS: LOSARTAN 50 MG TAB PO (08:29)
[2018-07-01 08:37] LABS: ADD MAN DIFF? NO
[2018-07-01 08:39] LABS: BASOPHIL # 0.1 10^3/ul (0.0-0.1); BASOPHILS % 1.1 % (0.0-2.0); EOSINOPHILS # 0.2 10^3/ul (0.0-0.5); EOSINOPHILS % 2.8 % (0.0-7.0); HEMATOCRIT 30.9 % (37.0-47.0); HEMOGLOBIN 10.1 g/dl (12.0-16.0); LYMPHOCYTES # 1.7 10^3/ul (0.8-2.9); LYMPHOCYTES % 31.4 % (15.0-51.0); MEAN CORPUSCULAR HEMOGLOBIN 31.4 pg (29.0-33.0); MEAN CORPUSCULAR HGB CONC 32.7 g/dl (32.0-37.0); MEAN PLATELET VOLUME 9.5 fl (7.4-10.4); MONOCYTE # 0.4 10^3/ul (0.3-0.9); MONOCYTES % 8.3 % (0.0-11.0); NEUTROPHIL # 2.9 10^3/ul (1.6-7.5); NEUTROPHILS % 54.5 % (39.0-77.0); PLATELET COUNT 341 10^3/UL (140-415); RED BLOOD COUNT 3.22 10^6/ul (4.20-5.40); RED CELL DISTRIBUTION WIDTH 16.5 % (11.5-14.5)
[2018-07-01 08:39] LABS: WHITE BLOOD COUNT 5.3 10^3/ul (4.8-10.8)
[2018-07-01 09:06] LABS: ANION GAP 11 (8-16); BLOOD UREA NITROGEN 15 mg/dl (7-20); CALCIUM 9.1 mg/dl (8.4-10.2); CARBON DIOXIDE 27 mmol/L (21-31); CHLORIDE 102 mmol/L (97-110); CREATININE 0.88 mg/dl (0.44-1.00); GLUCOSE 100 mg/dl (70-220); POTASSIUM 4.4 mmol/L (3.5-5.1); SODIUM 136 mmol/L (135-144)
[2018-07-01] MEDS: TRIAMCINOLONE ACET 0.1% 15 GM OINT TOP (12:56)
[2018-07-04 14:06] LABS: ANCA SCREEN NEGATIVE (NEGATIVE); MYELOPEROXIDASE ANTIBODY <1.0 AI; PROTEINASE-3 ANTIBODY <1.0 AI
== END 2018-07-01 16:55 | disposition home health service (06) | DRG 812 ==
LOC: E/R 14:33 → 2NE 20:41
PROC: 0DBF8ZX Excision of Right Large Intestine, Via Natural or Artificial Opening Endoscopic, Diagnostic (ICD-10-PCS; principal; 2018-06-28 13:16)
PROC: 0DBP8ZX Excision of Rectum, Via Natural or Artificial Opening Endoscopic, Diagnostic (ICD-10-PCS; 2018-06-28 13:16)
PROC: 30233N1 Transfusion of Nonautologous Red Blood Cells into Peripheral Vein, Percutaneous Approach (ICD-10-PCS; 2018-06-28 13:16)
DX: D62 Acute posthemorrhagic anemia (principal); K51.90 Ulcerative colitis, unspecified, without complications; K29.70 Gastritis, unspecified, without bleeding; I10 Essential (primary) hypertension; E66.01 Morbid (severe) obesity due to excess calories; Z68.38 Body mass index [BMI] 38.0-38.9, adult; K63.89 Other specified diseases of intestine; K62.89 Other specified diseases of anus and rectum
CPT/HCPCS: 36415; 36430; 71045; 75635; 80048; 80053; 80061; 82270; 83036; 83690; 83735; 83880; 84100; 84439; 84443; 84484; 85025; 85610; 85651; 85730; 86021; 86140; 86850; 86900; 86901; 86920; 88305; 92610; 93005; 93306; 97116; 97162; 97165; 97530; 99285-25; G0378

== ENCOUNTER 2018-08-11 09:14 | Observation (INO) | payer OTHER ==
[2018-08-11 10:03] LABS: ADD MAN DIFF? NO
[2018-08-11 10:09] LABS: WHITE BLOOD COUNT 6.5 10^3/ul (4.8-10.8)
[2018-08-11 10:09] LABS: BASOPHIL # 0.1 10^3/ul (0.0-0.1); BASOPHILS % 0.8 % (0.0-2.0); EOSINOPHILS % 0.5 % (0.0-7.0); HEMATOCRIT 26.2 % (37.0-47.0); LYMPHOCYTES # 1.2 10^3/ul (0.8-2.9); LYMPHOCYTES % 18.2 % (15.0-51.0); MEAN CORPUSCULAR HEMOGLOBIN 32.5 pg (29.0-33.0); MEAN CORPUSCULAR HGB CONC 34.4 g/dl (32.0-37.0); MEAN CORPUSCULAR VOLUME 94.6 fl (82.0-101.0); MEAN PLATELET VOLUME 9.5 fl (7.4-10.4); MONOCYTE # 0.4 10^3/ul (0.3-0.9); MONOCYTES % 6.8 % (0.0-11.0); NEUTROPHIL # 4.7 10^3/ul (1.6-7.5); NEUTROPHILS % 72.8 % (39.0-77.0); PLATELET COUNT 313 10^3/UL (140-415); RED BLOOD COUNT 2.77 10^6/ul (4.20-5.40)
[2018-08-11 10:17] LABS: ADD UMIC YES; UR ASCORBIC ACID NEGATIVE (NEGATIVE); UR BILIRUBIN (Dip) NEGATIVE (NEGATIVE); UR BLOOD (Dip) NEGATIVE (NEGATIVE); UR CLARITY CLEAR (CLEAR); UR COLOR YELLOW (YELLOW); UR GLUCOSE (Dip) NEGATIVE (NEGATIVE); UR KETONES (Dip) NEGATIVE (NEGATIVE); UR LEUKOCYTE ESTERASE (Dip) TRACE Leu/ul (NEGATIVE); UR NITRITE (Dip) NEGATIVE (NEGATIVE); UR RBC 0 /HPF (0-5); UR SPECIFIC GRAVITY (Dip) 1.012 (1.003-1.030); UR TOTAL PROTEIN (Dip) NEGATIVE (NEGATIVE); UR UROBILINOGEN (Dip) NEGATIVE (NEGATIVE); UR WBC 2 /HPF (0-5)
[2018-08-11] MEDS: LACTULOSE 30ML CUP PO ×2 (10:19→22:32)
[2018-08-11] MEDS: BISACODYL 10 MG SUPP PR (10:19)
[2018-08-11 10:24] LABS: ALANINE AMINOTRANSFERASE 14 IU/L (13-69); ALBUMIN 3.7 g/dl (3.3-4.9); ALBUMIN/GLOBULIN RATIO 1.15; ALKALINE PHOSPHATASE 65 IU/L (42-121); ANION GAP 13 (8-16); ASPARTATE AMINO TRANSFERASE 17 IU/L (15-46); BILIRUBIN,INDIRECT 0.2 mg/dl (0-1.1); BILIRUBIN,TOTAL 0.2 mg/dl (0.2-1.3); BLOOD UREA NITROGEN 20 mg/dl (7-20); CALCIUM 8.8 mg/dl (8.4-10.2); CARBON DIOXIDE 26 mmol/L (21-31); CHLORIDE 95 mmol/L (97-110); CREATININE 1.03 mg/dl (0.44-1.00); GLUCOSE 94 mg/dl (70-220); LIPASE 53 U/L (23-300); POTASSIUM 5.1 mmol/L (3.5-5.1); SODIUM 129 mmol/L (135-144); TOTAL PROTEIN 6.9 g/dl (6.1-8.1)
[2018-08-11] MEDS: ONDANSETRON 4 MG INJ IV (11:30)
[2018-08-11] MEDS: morphine 4 MG/ML VIAL IV (11:31)
[2018-08-11] MEDS ORDERED: ACETAMINOPHEN 325 MG TAB PO (12:30)
[2018-08-11] MEDS ORDERED: ONDANSETRON 4 MG INJ IV ×2 (12:30→14:00)
[2018-08-11] MEDS ORDERED: HYDROmorphONE 0.5 MG/0.5 ML SYG IV (14:00)
[2018-08-11] MEDS ORDERED: NACL 0.9% 3 ML SYG IV (14:00)
[2018-08-11] MEDS: SOD CHLORIDE 0.9% 1,000 ML IV (14:17)
[2018-08-11] MEDS ORDERED: BISACODYL (EC) 5 MG TAB PO (14:30)
[2018-08-11 15:16] LABS: HEMOGLOBIN A1C 5.7 % (0-5.9)
[2018-08-11] MEDS: MAGNESIUM CITRATE 300 ML BTL PO (16:04)
[2018-08-11 16:30] LABS: B-TYPE NATRIURETIC PEPTIDE 268 PG/ML (0-450)
[2018-08-11 17:48] LABS: FREE T4 (FREE THYROXINE) 1.21 ng/dl (0.85-1.93)
[2018-08-11 17:48] LABS: OSMOLALITY,URINE 316 mOsm/kg (250-1200)
[2018-08-11 18:00] LABS: OSMOLALITY 277 mOsm/kg (280-295)
[2018-08-11] MEDS ORDERED: DOCUSATE SODIUM 100 MG CAP PO (19:55)
[2018-08-11] MEDS ORDERED: POLYETHYLENE GLYCOL 17 GM PACKET (19:55)
[2018-08-11] MEDS: POLYETHYLENE GLYCOL 17 GM PACKET PO (19:58)
[2018-08-11] MEDS: DOCUSATE SODIUM 100 MG CAP PO (19:58)
[2018-08-12] MEDS: SOD CHLORIDE 0.9% 1,000 ML IV (05:13)
[2018-08-12] MEDS: LACTULOSE 30ML CUP PO ×3 (05:13→22:11)
[2018-08-12] MEDS: CHOLECALCIFEROL 1,000 UNIT TAB PO (08:31)
[2018-08-12] MEDS: DOCUSATE SODIUM 100 MG CAP PO ×2 (08:31→20:44)
[2018-08-12] MEDS: LOSARTAN 50 MG TAB PO (08:31)
[2018-08-12] MEDS: GABAPENTIN 100 MG CAP PO (08:31)
[2018-08-12] MEDS: FERROUS SULFATE (EC) 325 MG TAB PO (08:31)
[2018-08-12] MEDS: POLYETHYLENE GLYCOL 17 GM PACKET PO ×2 (08:31→20:58)
[2018-08-12] MEDS: HYDROCODONE/APAP (5/325) TAB PO (15:51)
[2018-08-12 17:42] LABS: ANION GAP 8 (8-16); BLOOD UREA NITROGEN 12 mg/dl (7-20); CALCIUM 8.5 mg/dl (8.4-10.2); CARBON DIOXIDE 29 mmol/L (21-31); CHLORIDE 101 mmol/L (97-110); GLUCOSE 92 mg/dl (70-220); POTASSIUM 4.1 mmol/L (3.5-5.1); SODIUM 134 mmol/L (135-144)
[2018-08-12] MEDS: CEPHALEXIN 500 MG CAP PO (22:13)
[2018-08-13] MEDS: CEPHALEXIN 500 MG CAP PO (05:12)
[2018-08-13] MEDS: LACTULOSE 30ML CUP PO (05:12)
[2018-08-13 05:58] LABS: ADD MAN DIFF? NO
[2018-08-13 06:02] LABS: BASOPHIL # 0.1 10^3/ul (0.0-0.1); EOSINOPHILS # 0.2 10^3/ul (0.0-0.5); EOSINOPHILS % 3.3 % (0.0-7.0); HEMOGLOBIN 9.1 g/dl (12.0-16.0); LYMPHOCYTES # 1.4 10^3/ul (0.8-2.9); LYMPHOCYTES % 26.3 % (15.0-51.0); MEAN CORPUSCULAR HEMOGLOBIN 31.7 pg (29.0-33.0); MEAN CORPUSCULAR HGB CONC 32.5 g/dl (32.0-37.0); MEAN CORPUSCULAR VOLUME 97.6 fl (82.0-101.0); MEAN PLATELET VOLUME 9.4 fl (7.4-10.4); MONOCYTE # 0.5 10^3/ul (0.3-0.9); MONOCYTES % 9.7 % (0.0-11.0); NEUTROPHILS % 58.9 % (39.0-77.0); PLATELET COUNT 309 10^3/UL (140-415); RED BLOOD COUNT 2.87 10^6/ul (4.20-5.40); RED CELL DISTRIBUTION WIDTH 15.9 % (11.5-14.5)
[2018-08-13 06:02] LABS: WHITE BLOOD COUNT 5.1 10^3/ul (4.8-10.8)
[2018-08-13 06:26] LABS: ANION GAP 10 (8-16); BLOOD UREA NITROGEN 9 mg/dl (7-20); CALCIUM 8.7 mg/dl (8.4-10.2); CARBON DIOXIDE 28 mmol/L (21-31); CHLORIDE 102 mmol/L (97-110); CREATININE 0.78 mg/dl (0.44-1.00); GLUCOSE 89 mg/dl (70-220); POTASSIUM 4.2 mmol/L (3.5-5.1); SODIUM 136 mmol/L (135-144)
[2018-08-13 06:51] LABS: MAGNESIUM 2.4 mg/dl (1.7-2.5)
[2018-08-13 06:51] LABS: PHOSPHORUS 3.3 mg/dl (2.5-4.9)
[2018-08-13] MEDS: morphine 4 MG/ML VIAL IV (09:21)
[2018-08-13] MEDS: GABAPENTIN 100 MG CAP PO (09:25)
[2018-08-13] MEDS: DOCUSATE SODIUM 100 MG CAP PO (09:25)
[2018-08-13] MEDS: FERROUS SULFATE (EC) 325 MG TAB PO (09:25)
[2018-08-13] MEDS: CHOLECALCIFEROL 1,000 UNIT TAB PO (09:25)
[2018-08-13] MEDS: LOSARTAN 50 MG TAB PO (09:25)
[2018-08-13] MEDS: POLYETHYLENE GLYCOL 17 GM PACKET PO (09:27)
[2018-08-13] MEDS: HYDROCODONE/APAP (5/325) TAB PO (11:33)
[2018-08-13] MEDS: COLLAGENASE 5 GM (UD JAR) TOP (12:00)
== END 2018-08-13 13:20 | disposition home or self-care (01) ==
LOC: E/R 09:14 → PP2 12:11
DX: R10.84 Generalized abdominal pain (principal); E87.1 Hypo-osmolality and hyponatremia; I10 Essential (primary) hypertension; M19.90 Unspecified osteoarthritis, unspecified site; D64.9 Anemia, unspecified; K42.9 Umbilical hernia without obstruction or gangrene; S91.301A Unspecified open wound, right foot, initial encounter; X58.XXXA Exposure to other specified factors, initial encounter
CPT/HCPCS: 36415; 74176; 80048; 80053; 81001; 83036; 83690; 83735; 83880; 83930; 83935; 84100; 84439; 84443; 85025; 87086; 93970; 96374; 96375; 99285-25; G0378

== ENCOUNTER 2018-12-25 17:27 | Inpatient (IN) | payer OTHER ==
[2018-12-25 18:36] LABS: ADD UMIC YES; UR ASCORBIC ACID NEGATIVE (NEGATIVE); UR BACTERIA FEW /HPF (NONE SEEN); UR BILIRUBIN (Dip) NEGATIVE (NEGATIVE); UR BLOOD (Dip) NEGATIVE (NEGATIVE); UR CLARITY SLIGHTLY CLOUDY (CLEAR); UR COLOR YELLOW (YELLOW); UR GLUCOSE (Dip) NEGATIVE (NEGATIVE); UR KETONES (Dip) NEGATIVE (NEGATIVE); UR LEUKOCYTE ESTERASE (Dip) 1+ Leu/ul (NEGATIVE); UR NITRITE (Dip) NEGATIVE (NEGATIVE); UR RBC 1 /HPF (0-5); UR SPECIFIC GRAVITY (Dip) 1.013 (1.003-1.030); UR SQUAMOUS EPITHELIAL CELL FEW /HPF (FEW); UR TOTAL PROTEIN (Dip) NEGATIVE (NEGATIVE); UR UROBILINOGEN (Dip) NEGATIVE (NEGATIVE); UR WBC 5 /HPF (0-5)
[2018-12-25 18:48] LABS: ABNORMAL IP MESSAGE 1; MEAN CORPUSCULAR HEMOGLOBIN 28.6 pg (29.0-33.0); MEAN CORPUSCULAR HGB CONC 33.2 g/dl (32.0-37.0); MEAN CORPUSCULAR VOLUME 86.4 fl (82.0-101.0); MEAN PLATELET VOLUME 9.5 fl (7.4-10.4); PLATELET COUNT 575 10^3/UL (140-415)
[2018-12-25 18:48] LABS: WHITE BLOOD COUNT 10.7 10^3/ul (4.8-10.8)
[2018-12-25 18:53] LABS: HEMOGLOBIN 6.3 g/dl (12.0-16.0); POSITIVE DIFF @See below
[2018-12-25 18:54] LABS: ADD MAN DIFF? YES
[2018-12-25] MEDS: SOD CHLORIDE 0.9% 0 ML IV (18:54)
[2018-12-25] MEDS: SOD CHLORIDE 0.9% 500 ML IV (18:59)
[2018-12-25] MEDS: FAMOTIDINE 20 MG INJ IV (18:59)
[2018-12-25 19:04] LABS: ALANINE AMINOTRANSFERASE 9 IU/L (13-69); ALBUMIN 3.3 g/dl (3.3-4.9); ALBUMIN/GLOBULIN RATIO 0.89; ALKALINE PHOSPHATASE 128 IU/L (42-121); ANION GAP 12 (5-13); ASPARTATE AMINO TRANSFERASE 17 IU/L (15-46); BLOOD UREA NITROGEN 47 mg/dl (7-20); CALCIUM 8.7 mg/dl (8.4-10.2); CARBON DIOXIDE 25 mmol/L (21-31); CHLORIDE 90 mmol/L (97-110); CREATININE 1.61 mg/dl (0.44-1.00); GLUCOSE 101 mg/dl (70-220); LIPASE 60 U/L (23-300); POTASSIUM 4.4 mmol/L (3.5-5.1); SODIUM 127 mmol/L (135-144)
[2018-12-25 19:15] LABS: TROPONIN-I < 0.012 ng/ml (0.000-0.120)
[2018-12-25 19:21] LABS: ANISOCYTOSIS 1+ (0-0); BAND NEUTROPHILS #M 0.3 10^3/ul (0.0-0.6); BAND NEUTROPHILS % (M) 3 % (0-4); BASOPHIL #M 0.2 10^3/ul (0.0-0.0); BASOPHILS % (M) 2 % (0-2); GIANT THROMBO% (M) 1 % (0-0); HYPOCHROMASIA 2+ (0-0); LYMPHOCYTES #M 1.4 10^3/ul (0.8-2.9); LYMPHOCYTES % (M) 14 % (15-51); MICROCYTOSIS 1+ (0-0); MONOCYTE #M 0.7 10^3/ul (0.3-0.9); MONOCYTES % (M) 7 % (0-11); OVALOCYTES 1+ (0-0); PLATELET ESTIMATE NORMAL; POLYCHROMASIA 1+ (0-0); SEGMENTED NEUTROPHILS (M) % 74 % (39-77); SMUDGE%M 3 % (0-0)
[2018-12-25] MEDS: PANTOPRAZOLE 40 MG INJ IV (19:29)
[2018-12-25 20:25] LABS: IMMEDIATE SPIN CROSSMATCH 1 3
[2018-12-25] MEDS: morphine 4 MG/ML VIAL IV (20:52)
[2018-12-25] MEDS: ONDANSETRON 4 MG INJ IV (20:52)
[2018-12-25] MEDS ORDERED: ACETAMINOPHEN 325 MG TAB PO (21:30)
[2018-12-25] MEDS ORDERED: ONDANSETRON 4 MG INJ IV ×2 (21:30→22:00)
[2018-12-25] MEDS ORDERED: ALBUTEROL/IPRATROPIUM (NEB) 3 ML AMP HHN (22:00)
[2018-12-25] MEDS ORDERED: NACL 0.9% 3 ML SYG IV (22:00)
[2018-12-26] MEDS: HYDROCODONE/APAP (5/325) TAB PO ×5 (05:48→21:43)
[2018-12-26] MEDS: PANTOPRAZOLE 40 MG INJ IV ×2 (05:48→17:57)
[2018-12-26 06:19] LABS: ADD MAN DIFF? NO
[2018-12-26 06:28] LABS: WHITE BLOOD COUNT 6.6 10^3/ul (4.8-10.8)
[2018-12-26 06:28] LABS: ABNORMAL IP MESSAGE 1; BASOPHIL # 0.1 10^3/ul (0.0-0.1); BASOPHILS % 0.8 % (0.0-2.0); EOSINOPHILS # 0.1 10^3/ul (0.0-0.5); EOSINOPHILS % 1.8 % (0.0-7.0); HEMATOCRIT 18.6 % (37.0-47.0); LYMPHOCYTES # 1.3 10^3/ul (0.8-2.9); LYMPHOCYTES % 19.2 % (15.0-51.0); MEAN CORPUSCULAR HEMOGLOBIN 28.4 pg (29.0-33.0); MEAN CORPUSCULAR HGB CONC 32.8 g/dl (32.0-37.0); MEAN CORPUSCULAR VOLUME 86.5 fl (82.0-101.0); MEAN PLATELET VOLUME 9.6 fl (7.4-10.4); MONOCYTE # 0.8 10^3/ul (0.3-0.9); MONOCYTES % 11.9 % (0.0-11.0); NEUTROPHIL # 4.3 10^3/ul (1.6-7.5); NEUTROPHILS % 65.1 % (39.0-77.0); PLATELET COUNT 426 10^3/UL (140-415); RED BLOOD COUNT 2.15 10^6/ul (4.20-5.40); RED CELL DISTRIBUTION WIDTH 15.1 % (11.5-14.5)
[2018-12-26 06:53] LABS: HEMOGLOBIN 6.1 g/dl (12.0-16.0); POSITIVE DIFF @See below
[2018-12-26 07:08] LABS: ALANINE AMINOTRANSFERASE 11 IU/L (13-69); ALBUMIN 2.3 g/dl (3.3-4.9); ALBUMIN/GLOBULIN RATIO 0.79; ALKALINE PHOSPHATASE 84 IU/L (42-121); ANION GAP 7 (5-13); ASPARTATE AMINO TRANSFERASE 10 IU/L (15-46); BLOOD UREA NITROGEN 42 mg/dl (7-20); CALCIUM 8.1 mg/dl (8.4-10.2); CARBON DIOXIDE 26 mmol/L (21-31); CHLORIDE 96 mmol/L (97-110); CREATININE 1.57 mg/dl (0.44-1.00); GLUCOSE 97 mg/dl (70-220); MAGNESIUM 2.1 mg/dl (1.7-2.5); PHOSPHORUS 4.7 mg/dl (2.5-4.9); SODIUM 129 mmol/L (135-144); TOTAL PROTEIN 5.2 g/dl (6.1-8.1)
[2018-12-26] MEDS: GABAPENTIN 100 MG CAP PO (08:45)
[2018-12-26] MEDS: DOCUSATE SODIUM 100 MG CAP PO ×2 (08:45→20:07)
[2018-12-26] MEDS: FERROUS SULFATE (EC) 325 MG TAB PO ×3 (08:45→20:07)
[2018-12-26] MEDS: SENNA TAB PO ×2 (08:45→20:07)
[2018-12-26] MEDS: TRIAMCINOLONE ACET 0.1% 15 GM OINT TOP ×2 (09:00→20:10)
[2018-12-26] MEDS ORDERED: NON-FORMULARY/PATIENT OWN MED (Omeprazole* 20 MG) PO (09:00)
[2018-12-26] MEDS: CHOLECALCIFEROL 1,000 UNIT TAB PO (09:00)
[2018-12-26] MEDS ORDERED: POLYETHYLENE GLYCOL 17 GM PACKET PO (13:00)
[2018-12-26] MEDS: SUCRALFATE 1 GM TAB PO ×3 (13:31→20:07)
[2018-12-26 14:24] LABS: C-REACTIVE PROTEIN 5.4 mg/dl (0.0-0.9)
[2018-12-26 15:05] LABS: ERYTHROCYTE SEDIMENTATION RATE 45 mm/Hr (0-30)
[2018-12-26] MEDS: SOD CHLORIDE 0.9% 1,000 ML IV ×2 (15:27→21:30)
[2018-12-26] MEDS: MESALAMINE (EC) 400 MG CAP PO ×2 (17:40→20:13)
[2018-12-26] MEDS: COLLAGENASE 5 GM (UD JAR) TOP (21:06)
[2018-12-27] MEDS: PANTOPRAZOLE 40 MG INJ IV ×2 (05:55→17:25)
[2018-12-27] MEDS: SOD CHLORIDE 0.9% 1,000 ML IV ×2 (05:55→17:25)
[2018-12-27 06:07] LABS: ADD MAN DIFF? NO
[2018-12-27 06:09] LABS: BASOPHIL # 0.1 10^3/ul (0.0-0.1); BASOPHILS % 0.6 % (0.0-2.0); EOSINOPHILS # 0.2 10^3/ul (0.0-0.5); EOSINOPHILS % 2.1 % (0.0-7.0); HEMOGLOBIN 7.2 g/dl (12.0-16.0); LYMPHOCYTES # 1.2 10^3/ul (0.8-2.9); LYMPHOCYTES % 14.9 % (15.0-51.0); MEAN CORPUSCULAR HEMOGLOBIN 28.6 pg (29.0-33.0); MEAN CORPUSCULAR HGB CONC 32.7 g/dl (32.0-37.0); MEAN CORPUSCULAR VOLUME 87.3 fl (82.0-101.0); MEAN PLATELET VOLUME 9.3 fl (7.4-10.4); MONOCYTE # 0.8 10^3/ul (0.3-0.9); MONOCYTES % 10.1 % (0.0-11.0); NEUTROPHIL # 5.6 10^3/ul (1.6-7.5); NEUTROPHILS % 71.5 % (39.0-77.0); PLATELET COUNT 436 10^3/UL (140-415); RED BLOOD COUNT 2.52 10^6/ul (4.20-5.40)
[2018-12-27 06:09] LABS: WHITE BLOOD COUNT 7.8 10^3/ul (4.8-10.8)
[2018-12-27 06:33] LABS: IRON 27 ug/dl (35-150)
[2018-12-27 06:37] LABS: ANION GAP 6 (5-13); BLOOD UREA NITROGEN 33 mg/dl (7-20); CALCIUM 8.3 mg/dl (8.4-10.2); CARBON DIOXIDE 25 mmol/L (21-31); CHLORIDE 101 mmol/L (97-110); CREATININE 1.33 mg/dl (0.44-1.00); GLUCOSE 91 mg/dl (70-220); MAGNESIUM 2.1 mg/dl (1.7-2.5); SODIUM 132 mmol/L (135-144)
[2018-12-27 06:44] LABS: % IRON SATURATION 11 % SAT (22-52); TOTAL IRON BINDING CAPACITY 245 ug/dl (241-421)
[2018-12-27] MEDS: POLYETHYLENE GLYCOL 17 GM PACKET PO ×2 (06:55→20:27)
[2018-12-27] MEDS: HYDROCODONE/APAP (5/325) TAB PO ×2 (06:55→20:26)
[2018-12-27 07:34] LABS: POTASSIUM 4.3 mmol/L (3.5-5.1)
[2018-12-27] MEDS: COLLAGENASE 5 GM (UD JAR) TOP (09:25)
[2018-12-27] MEDS: MESALAMINE (EC) 400 MG CAP PO ×3 (09:25→20:26)
[2018-12-27] MEDS: CHOLECALCIFEROL 1,000 UNIT TAB PO (09:25)
[2018-12-27] MEDS: FERROUS SULFATE (EC) 325 MG TAB PO ×3 (09:26→20:26)
[2018-12-27] MEDS: TRIAMCINOLONE ACET 0.1% 15 GM OINT TOP ×2 (09:26→20:27)
[2018-12-27] MEDS: DOCUSATE SODIUM 100 MG CAP PO ×2 (09:26→20:26)
[2018-12-27] MEDS: GABAPENTIN 100 MG CAP PO (09:26)
[2018-12-27] MEDS: SUCRALFATE 1 GM TAB PO ×4 (09:26→20:26)
[2018-12-27] MEDS: SENNA TAB PO ×2 (09:26→20:26)
[2018-12-27 17:11] LABS: FERRITIN 31.9 ng/ml (11.1-264.0)
[2018-12-27] MEDS: ACETAMINOPHEN 325 MG TAB PO (17:50)
[2018-12-28] MEDS: SOD CHLORIDE 0.9% 1,000 ML IV (03:41)
[2018-12-28] MEDS: COLLAGENASE 5 GM (UD JAR) TOP (04:42)
[2018-12-28] MEDS: PANTOPRAZOLE 40 MG INJ IV (05:00)
[2018-12-28] MEDS ORDERED: SOD FERRIC GLUC COMPLX 125 MG in SOD CHLORIDE 0.9% 100 ML IVPB (08:30)
[2018-12-28 08:51] LABS: ADD MAN DIFF? NO
[2018-12-28 08:53] LABS: BASOPHIL # 0.1 10^3/ul (0.0-0.1); BASOPHILS % 0.9 % (0.0-2.0); EOSINOPHILS # 0.2 10^3/ul (0.0-0.5); HEMATOCRIT 26.1 % (37.0-47.0); HEMOGLOBIN 8.3 g/dl (12.0-16.0); LYMPHOCYTES # 1.4 10^3/ul (0.8-2.9); MEAN CORPUSCULAR HEMOGLOBIN 28.7 pg (29.0-33.0); MEAN CORPUSCULAR HGB CONC 31.8 g/dl (32.0-37.0); MEAN CORPUSCULAR VOLUME 90.3 fl (82.0-101.0); MEAN PLATELET VOLUME 9.4 fl (7.4-10.4); MONOCYTE # 0.6 10^3/ul (0.3-0.9); MONOCYTES % 8.2 % (0.0-11.0); NEUTROPHIL # 4.4 10^3/ul (1.6-7.5); NEUTROPHILS % 65.9 % (39.0-77.0); PLATELET COUNT 479 10^3/UL (140-415); RED BLOOD COUNT 2.89 10^6/ul (4.20-5.40); RED CELL DISTRIBUTION WIDTH 15.2 % (11.5-14.5)
[2018-12-28 08:53] LABS: WHITE BLOOD COUNT 6.7 10^3/ul (4.8-10.8)
[2018-12-28] MEDS: FERROUS SULFATE (EC) 325 MG TAB PO ×2 (09:11→13:31)
[2018-12-28] MEDS: DOCUSATE SODIUM 100 MG CAP PO (09:11)
[2018-12-28] MEDS: SUCRALFATE 1 GM TAB PO ×2 (09:11→13:31)
[2018-12-28] MEDS: POLYETHYLENE GLYCOL 17 GM PACKET PO (09:11)
[2018-12-28] MEDS: MESALAMINE (EC) 400 MG CAP PO ×2 (09:11→13:31)
[2018-12-28] MEDS: SENNA TAB PO (09:11)
[2018-12-28] MEDS: GABAPENTIN 100 MG CAP PO (09:11)
[2018-12-28] MEDS: CHOLECALCIFEROL 1,000 UNIT TAB PO (09:11)
[2018-12-28] MEDS: TRIAMCINOLONE ACET 0.1% 15 GM OINT TOP (09:12)
[2018-12-28] MEDS: SOD FERRIC GLUC COMPLX 125 MG in SOD CHLORIDE 0.9% 100 ML IVPB (13:31)
== END 2018-12-28 15:15 | disposition home or self-care (01) | DRG 812 ==
LOC: E/R 17:27 → 5EC 21:23
PROC: 30233N1 Transfusion of Nonautologous Red Blood Cells into Peripheral Vein, Percutaneous Approach (ICD-10-PCS; principal; 2018-12-26)
DX: D62 Acute posthemorrhagic anemia (principal); K63.3 Ulcer of intestine; E87.1 Hypo-osmolality and hyponatremia; D50.0 Iron deficiency anemia secondary to blood loss (chronic); N28.9 Disorder of kidney and ureter, unspecified; R03.0 Elevated blood-pressure reading, without diagnosis of hypertension; Z87.891 Personal history of nicotine dependence
CPT/HCPCS: 36415; 36430; 74176; 76705; 80048; 80053; 81001; 82728; 83540; 83690; 83735; 84100; 84484; 85025; 85651; 86140; 86850; 86900; 86901; 86920; 93005; 96361; 96374; 96375; 99285-25